=== PATIENT | male | born 1945 | race Caucasian/White ===

== ENCOUNTER 2017-03-16 12:29 | Inpatient (IN) | payer BC ==
[~2017-03-16] VITALS: Ht 175.3 cm; Wt 72.4 kg
[2017-03-16] VITALS (249 sets, daily range): BP systolic 109–125; BP diastolic 74–82; PULSE 54–70; TEMP 97.4–98.4; O2SAT 64–100
[2017-03-16] MEDS ORDERED: COREG 3.123.125 MG/T PO (22:52)
[2017-03-16] MEDS ORDERED: CARDURA4 MG PO (22:53)
[2017-03-16] MEDS ORDERED: ROXICODONE 55 MG/TAB PO (22:55)
[2017-03-17 06:48] LABS: MEAN CELL VOLUME 80 fl (80.0-100.0); MEAN CORPUSCULAR HGB CONC 33 g/dl (33.0-37.0); MEAN PLATELET VOLUME 10.7 fl (7.4-10.4); PLATELET COUNT 117 K/mm3 (130-400); RED BLOOD COUNT 4.57 M/mm3 (4.20-5.60); REDCELL DISTRIBUTION WIDTH-CV 15.1 % (11.5-14.5); WHITE BLOOD COUNT 7.7 K/mm3 (4.8-10.8)
[2017-03-17 06:52] LABS: HEMATOCRIT 36.5 % (42.0-52.0); HEMOGLOBIN 11.9 g/dl (13.5-18.0); MEAN CORPUSCULAR HEMOGLOBIN 26 pg (27.0-31.0)
[2017-03-17 07:05] LABS: CALCIUM 8.4 mg/dL (8.4-10.2); CREATININE, serum 1.16 mg/dL (0.66-1.25); POTASSIUM 4.2 mmol/L (3.4-5.0)
== END 2017-03-18 00:10 | disposition expired | DRG 291 ==
LOC: ICU 14:24 → MEDICAL 14:24
PROVIDERS: Internal Medicine
DX: I11.0 Hypertensive heart disease with heart failure (principal); J96.01 Acute respiratory failure with hypoxia; I50.23 Acute on chronic systolic (congestive) heart failure; Z51.5 Encounter for palliative care; Z66 Do not resuscitate; I35.0 Nonrheumatic aortic (valve) stenosis; Z87.891 Personal history of nicotine dependence; G89.4 Chronic pain syndrome; R00.1 Bradycardia, unspecified; M54.5 Low back pain
CPT/HCPCS: 99222; 99223; 99233-AI; J1630; J1650; J1940; J2060; J2270